=== PATIENT | male | born 1980 | race Caucasian/White ===

== ENCOUNTER 2017-03-23 12:22 | Emergency (ER) | payer SELFPAY ==
[~2017-03-23] VITALS: Ht 188 cm; Wt 145.0 kg
[~2017-03-23 12:22] MED LIST: ALBUTEROL S2.5 MG/.5 IN; AUGMENTIN875 MG PO; AZITHROMYCIN250 MG PO; BENTYL20 MG OR; HYDROCHLORO25 MG/TAB PO; LISINOPRIL20 MG PO; NAPROSYN500 MG PO; NO; NORCO1 TA1 PO; PERCOCET 5/325M1 TAB PO; REGLAN10 MG PO; ULTRAM50 M1 PO; ULTRAM50 MG OR; ZOFRAN ODT8 MG PO; ZOFRAN ODT8 MG SL
[2017-03-23 15:11] LABS: URINE BILIRUBIN - DIPSTICK NEGATIVE (NEGATIVE); URINE BLOOD DIPSTICK NEGATIVE (NEGATIVE); URINE COLOR YELLOW; URINE GLUCOSE - DIPSTICK NEGATIVE (NEGATIVE); URINE KETONE NEGATIVE (NEGATIVE); URINE LEUK ESTERASE NEGATIVE (NEGATIVE); URINE NITRITE - DIPSTICK NEGATIVE (Negative); URINE PROTEIN - DIPSTICK NEGATIVE (NEG-TRACE); URINE UROBILINOGEN - DIPSTICK 0.2 E.U./dL (0.2)
[2017-03-23 15:14] LABS: URINE CLARITY CLEAR
[2017-03-23 15:17] LABS: HEMATOCRIT 43.5 % (39.0-50.0); HEMOGLOBIN 14.7 g/dl (14.0-18.0); IMMATURE GRANULOCYTES 0.2 % (0.0-1.0); MEAN CELL VOLUME 89.3 fL CALC (80.0-100.0); MEAN CORPUSCULAR HGB 30.2 pG CALC (26.0-32.0); MEAN CORPUSCULAR HGB CONC 33.8 g/L CALC (32.0-36.0); NEUT# 4.08 thou/uL (1.82-7.42); RED BLOOD COUNT 4.87 mill/uL (4.70-6.10); RED CELL DISTRI WIDTH 13.2 % (11.5-15.5)
[2017-03-23 15:32] LABS: ALBUMIN 4.4 g/dL (3.2-5.0); ALKALINE PHOSPHATASE 58 u/l (38-126); ANION GAP 15 (6-22 (CALC)); BILIRUBIN, TOTAL 0.6 mg/dL (0.0-1.4); BUN 8 mg/dL (9-20); BUN/CREATININE RATIO 8 (12-20 (CALC)); CALCIUM 9.9 mg/dL (8.4-10.2); CARBON DIOXIDE 23 mmol/l (22-30); CHLORIDE 106 mmol/l (95-108); GFR > 60 ML/MIN (>=60 (CALC)); GFR FOR AFR.AMER. > 60 ML/MIN (>=60 (CALC)); GLUCOSE 89 mg/dL (75-110); POTASSIUM 4.8 mmol/l (3.5-5.1); SGOT/AST 21 u/l (17-59); SGPT/ALT 49 u/l (21-72); SODIUM 140 mmol/l (137-146); TOTAL PROTEIN 6.9 g/dL (6.3-8.2)
[2017-03-23] MEDS ORDERED: NAPROSYN500 MG PO (15:39)
[2017-03-23 15:49] VITALS: BP 134/94
== END 2017-03-23 15:54 | disposition home or self-care (01) | DRG 554 ==
LOC: ED 12:22
PROVIDERS: Emergency Medicine
DX: M19.072 Primary osteoarthritis, left ankle and foot (principal); M25.571 Pain in right ankle and joints of right foot; M19.071 Primary osteoarthritis, right ankle and foot; M25.572 Pain in left ankle and joints of left foot